=== PATIENT | male | born 1955 | race Caucasian/White ===

== ENCOUNTER → 2018-03-14 | Outpatient (CLI) | payer OTHER ==
[~2018-03-14] MED LIST: APAP500; ASPIR 8181 MG PO; ATORVASTATIN CA40 MG PO; BYSTOLIC 5 MG5 M1 PO; CADUET 5 MG-401 EACH PO; CIALIS20 MG PO; DIOVAN320 MG PO; DOXAZOSIN MESYLA1 MG PO; FISH OIL 1,2001 EACH PO; HYDROCHLOROTHIA25 M2 PO; IRBESARTAN300 MG PO; MOBIC7.5 MG PO; NORCO 5-325 TA1 EACH PO; NORVASC5 MG PO; PROTONIX40 M1 PO; PROTONIX40 M2 PO; VITAMIN D1000 UNI1 PO
== END ==
LOC: ULTRA 15:45
DX: I87.2 Venous insufficiency (chronic) (peripheral) (principal); R60.1 Generalized edema; K21.9 Gastro-esophageal reflux disease without esophagitis; Z88.0 Allergy status to penicillin; Z79.899 Other long term (current) drug therapy

== ENCOUNTER → 2018-11-23 | Outpatient (CLI) | payer OTHER | LOC: CAT 10:57 | DX: Z13.6 Encounter for screening for cardiovascular disorders (principal); E78.00 Pure hypercholesterolemia, unspecified; I25.10 Atherosclerotic heart disease of native coronary artery without angina pectoris ==